=== PATIENT | female | born 1985 | race Caucasian/White ===

== ENCOUNTER 2016-11-14 19:45 | Inpatient (IN) | payer OTHER ==
[~2016-11-14] VITALS: Ht 177.8 cm; Wt 120.2 kg
[2016-11-14 20:15] VITALS: BP 132/90; PULSE 97
[2016-11-14 20:30] VITALS: RESP 18; TEMP 97.9
[2016-11-14] MEDS ORDERED: OXYTOCIN 30 UNITS-500ML PREMIX 500 ML IV ONE (20:30)
[2016-11-14] MEDS ORDERED: MINERAL OIL 10 ML VIAL TOPICAL PRN (20:30)
[2016-11-14] MEDS ORDERED: LIDOCAINE HCL 1% 50 ML VIAL I-DERMAL PRN (20:30)
[2016-11-14] MEDS ORDERED: SODIUM CHLORIDE 0.9% FLUSH 5 ML FLUSH IV FLUSH PRN (20:30)
[2016-11-14] MEDS ORDERED: LIDOCAINE HCL 1% 50 ML VIAL INFIL PRN (20:30)
[2016-11-14] MEDS ORDERED: CITRIC ACID-SODIUM CITRATE LIQ 30 ML UDC PO SCH (20:30)
[2016-11-14] MEDS ORDERED: DINOPROSTONE 10 MG VAG INSERT VAGINAL ONE (20:30)
--- NOTE | 2016-11-14 20:48 | HHI.HP ---
HPI Travel History International Travel<30 Days: No Contact w/Intl Traveler<30Days: No Known Affected Area: No History of Present Illness HPI 31-year-old g0 para 0030 with single intra-uterine at 39 weeks here for induction of labor secondary to suspected microsomia. Ultrasound three weeks ago noted 6 lbs. 14 oz. fetus.she had bpp in office 3 d ago with mike 8, bpp 8/8. + fm, irreg ctx, neg vb. History Past Medical History Narrative Medical mthfr deficiency homozygous Past Surgical History Narrative Surgical breast implants, DnC, abdominoplasty Family History Family History: Negative Social History Alcohol Use: No Tobacco Use: No Substance Abuse: No Allergies-Medications (Allergen,Severity, Reaction): Coded Allergies: No Known Allergies (Unverified , 11/14/16) Home Meds Reported Medications Aspirin 81 Mg Chew81 Mg CHEW DAILY Ref 0 11/15/16 Vit-Iron Carbonyl ( Plus Iron 29-1 mg)1 Tab Tab1 Tab PO DAILY #30 TAB Ref 0 11/15/16 Review of Systems General / Constitutional: No: Fever, Weight Gain, Chills, Other Eyes: No: Diploplia, Blurred Vision, Visual changes, Pain, Photophobia HENT: No: Headaches, Vertigo, Lightheadedness Cardiovascular: No: Irregular Rhythm, Chest Pain or Discomfort, Palpitations, Tachycardia, Syncope, Varicosities, Edema, Cyanosis Respiratory: No: Cough, Short of Breath, Other Gastrointestinal: No: Nausea, Vomiting, Diarrhea Genitourinary: No: Decreased Urinary Output, Oliguria Musculoskeletal: No: Limited ROM, Weakness, Cramping, Edema, Pain Skin: No Rash, No Itching, No Dryness, No Lumps, No Change in Pigmentation, No Change in Nails, No Alopecia, No Lesions Neurologic: No: Weakness, Dizziness, Syncope, Focal Abnormalities, Coordination Problem, Headache, Slurred Speech, Seizures Psychiatric: No: Depression, Suicidal Ideations, Homicidal Ideation Endocrine: No: Heat Intolerance, Cold Intolerance, Polydipsia, Polyuria, Other Physical Exam Narrative GENERAL: Well-nourished, well-developed patient. SKIN: Warm and dry. HEAD: Normocephalic and atraumatic. EYES: No scleral icterus. No injection or drainage. ENT: No nasal drainage noted. Mucous membranes pink. Airway patent. NECK: Supple, trachea midline. No JVD. CARDIOVASCULAR: Regular rate and rhythm without murmurs, gallops, or rubs. RESPIRATORY: Breath sounds equal bilaterally. No accessory muscle use. BREASTS: ABDOMEN/GI:abdominoplasty scar. Abdomen soft, non-tender, bowel sounds present, no rebound, no guarding Gravid to [-40weeks size GENITOURINARY: External Genitalia: intact and normal in appearance BUS glands: [-] Cervix: ft/th/hi cephalic, intact.bpp 8/8 in office 11/12/16 Presentation:v Membranes: [intact Uterine Contractions: [-] FHT's: Category: I EXTREMITIES: No cyanosis or edema. BACK: Nontender without obvious deformity. No CVA tenderness. NEUROLOGICAL: Awake and alert. Motor and sensory grossly within normal limits. Five out of 5 muscle strength in all muscle groups. Normal speech. Data Data Vital Signs Reviewed: Yes Orders Admit To Inpatient (11/14/16 ) Vital Signs (Adult) .Per protocol (11/14/16 20:20) Activity Oob Ad Mayra (11/14/16 20:20) ^ Heart (11/14/16 20:20) ^ Amnioinfusion (11/14/16 20:20) Urinary Catheter Management .ONCE (11/14/16 20:20) Diet Liquid (11/15/16 Breakfast) Lactated Ringer's 1000 Ml Inj (Lr 1000 M (11/14/16 20:20) Lactated Ringer's 1000 Ml Inj (Lr 1000 M (11/14/16 20:20) Sodium Chlorid 0.9% 500 Ml Inj (Ns 500 M (11/14/16 20:30) Sodium Chlor 0.9% 1000 Ml Inj (Ns 1000 M (11/14/16 20:40) Lidocaine 1% Inj (50 Ml) (Xylocaine 1% I (11/14/16 20:30) Citric Acid-Sodium Citrate Liq (Bicitra (11/14/16 20:30) Fentanyl Inj (Fentanyl Inj) (11/14/16 20:30) Fentanyl Inj (Fentanyl Inj) (11/14/16 20:30) Complete Blood Count With Diff (11/14/16 20:20) Hold Clot (11/14/16 20:20) Abo/Rh Blood Type (11/14/16 20:20) Urinalysis - C+S If Indicated (11/14/16 20:20) Resp Oxygen Non Rebreathe Mask (11/14/16 ) ^ Epidural / Intrathecal Infus (11/14/16 20:20) Oxytocin 30 Units-500ml Premix (Pitocin (11/14/16 20:30) Lidocaine 1% Inj (50 Ml) (Xylocaine 1% I (11/14/16 20:30) Light Mineral Oil (Muri-Lube Oil) (11/14/16 20:30) Admit To Inpatient (11/14/16 ) Activity Oob Ad Mayra (11/14/16 20:20) ^ Labor Induction (11/14/16 20:20) ^ Vaginal Insert (11/14/16 20:20) ^ Vaginal Lavage (11/14/16 20:20) ^ Heart (11/14/16 20:20) Sodium Chloride 0.9% Flush (Ns Flush) (11/14/16 21:00) Sodium Chloride 0.9% Flush (Ns Flush) (11/14/16 20:30) Dinoprostone Vag Insert (Cervidil Vag In (11/14/16 20:30) Inpatient Certification (11/14/16 ) Specimen To Be Collected PRN (11/14/16 20:20) Assessment/Plan Assessment and Plan 31-year-old with intrauterine at 39 weeks being admitted for induction of labor secondary to suspected macrosomia. 1- induction of labor will start with cervidil for 12 hours overnight. 2 suspected macrosomia-ultrasound at 36 weeks noted 6 lbs. 14 oz. 78 percentile 3 mthfr def homozygous w nl homocystein levels. 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
[2016-11-14] MEDS ORDERED: LACTATED RINGER'S 1000 ML INJ 1,000 ML IV PRN (21:00)
[2016-11-14] MEDS ORDERED: SODIUM CHLOR 0.9% 1000 ML INJ 1,000 ML IV PRN (21:00)
[2016-11-14] MEDS: SODIUM CHLORIDE 0.9% FLUSH 5 ML FLUSH IV FLUSH SCH (21:00)
[2016-11-14] MEDS ORDERED: SODIUM CHLORID 0.9% 500 ML INJ 500 ML IV PRN (21:00)
[2016-11-14 21:09] LABS: BACTERIA, URINE OCC /hpf; BLOOD, URINE NEG (NEG); COMMENT (UR) CULT NOT INDICATED; CULTURE IF INDICATED CULT NOT INDICATED; GLUCOSE,URINE NEG (NEG); KETONE, URINE NEG (NEG); MUCUS URINE FEW /lpf (OCC); NITRITE,URINE NEG (NEG); PH, URINE 6.5 (5.0-8.5); SQUAMOUS EPITHELIAL CELL URINE 1 /hpf (0-5); URINE COLOR YELLOW (YELLW/STRAW)
[2016-11-14] MEDS: LACTATED RINGER'S 1000 ML INJ 1,000 ML IV SCH (21:12)
[2016-11-14 21:17] LABS: AUTOMATED NEUTROPHIL # 8.2 TH/MM3 (1.8-7.7); BASOPHIL # 0.1 TH/MM3 (0-0.2); BASOPHIL % 0.5 % (0.0-2.0); EOSINOPHIL # 0.1 TH/MM3 (0-0.4); EOSINOPHIL % 0.9 % (0.0-4.0); HEMO FLAGS DIFF FINAL; LYMPH % 20.1 % (9.0-44.0); LYMPHOCYTE # 2.3 TH/MM3 (1.0-4.8); MEAN CORPUSCULAR HGB CONC 33.7 % (32.0-36.0); MONO % 7.8 % (0.0-8.0); NEUT % 70.7 % (16.0-70.0); PLATELET COUNT 309 TH/MM3 (150-450); RED BLOOD COUNT 4.13 MIL/MM3 (4.00-5.30); RED CELL DISTRIBUTION WIDTH 13.3 % (11.6-17.2); WHITE BLOOD COUNT 11.6 TH/MM3 (4.0-11.0)
[2016-11-14] MEDS ORDERED: ZOLPIDEM TARTRATE 10 MG TAB PO PRN (21:45)
[2016-11-15] VITALS (38 sets, daily range): BP systolic 102–137; BP diastolic 64–101; PULSE 68–107; RESP 16–18; TEMP 97.6–98.7
[2016-11-15 02:08] LABS: MRSA PCR NEGATIVE (NEGATIVE); STAPH AUREUS PCR NEGATIVE (NEGATIVE)
[2016-11-15] MEDS: LACTATED RINGER'S 1000 ML INJ 1,000 ML IV SCH (04:30)
[2016-11-15] MEDS ORDERED: ASPI81CH CHEW (06:06)
[2016-11-15] MEDS ORDERED: PREN29TA PO (06:06)
--- NOTE | 2016-11-15 08:33 | PD.LABORPN ---
Subjective Subjective Pt had cervidil overnight. had difficult time sleeping. has cramping Objective Vital Signs Vital Signs Date Time Temp Pulse Resp B/P Pulse Ox O2 Delivery O2 Flow Rate FiO2 11/15/16 07:14 97.6 16 11/15/16 07:12 75 109/64 11/15/16 02:15 98.4 18 11/15/16 02:06 97 119/83 11/15/16 00:30 18 Objective Pelvic Exam: Cervix: 11/23/2 anterior, soft Presentation v Membranes: [intact Uterine Contractions: irreg FHT's: Category:i [id number] Reactive: y Variability:mod Decels: [-] Assessment/Plan Problem List: (1) Labor and delivery, indication for care (2) MTHFR deficiency complicating (3) Obese Assessment and Plan 31 yo with iup at 39w1d here for iol for suspected macrosomia at term 1) IOL- s/p cervidil, Pit and arom when possible 2) Fetus Cat I tracing. cephalic. approx 8-8.5lb 3) MTHFR def homozygous- nl homocystein, on baby asprin throughout 4) obesity- normal 1 hr gct. has h/o abdominoplasty Sydney Quinn MD Nov 15, 2016 08:32 Sydney Quinn MD Nov 15, 2016 08:32
[2016-11-15] MEDS ORDERED: OXYTOCIN 30 UNITS-500ML PREMIX 500 ML IV SCH (09:00)
[2016-11-15] MEDS: SODIUM CHLORIDE 0.9% FLUSH 5 ML FLUSH IV FLUSH SCH ×2 (09:00→21:00)
--- NOTE | 2016-11-15 12:25 | PD.LABORPN ---
Subjective Subjective not feeling contractions Objective Vital Signs Vital Signs Date Time Temp Pulse Resp B/P Pulse Ox O2 Delivery O2 Flow Rate FiO2 11/15/16 11:15 98.7 11/15/16 11:00 80 113/68 11/15/16 10:30 99 125/80 11/15/16 10:00 89 124/82 11/15/16 09:30 82 117/68 11/15/16 09:22 81 102/66 11/15/16 07:14 97.6 16 11/15/16 07:12 75 109/64 Objective Pelvic Exam: Cervix: 11/23/2 anterior, soft. unchanged. Presentation: v Membranes: [intact Uterine Contractions:3-5 FHT's: Category: I Assessment/Plan Problem List: (1) Labor and delivery, indication for care (2) MTHFR deficiency complicating (3) Obese Assessment and Plan 31 yo with iup at 39w1d here for iol for suspected macrosomia at term 1) IOL- s/p cervidil, Pit at 8, unable to arom. If unable to arom next visit, will place fb. 2) Fetus Cat I tracing. cephalic. approx 8-8.5lb 3) MTHFR def homozygous- nl homocystein, on baby asprin throughout 4) obesity- normal 1 hr gct. has h/o abdominoplasty Sydney Quinn MD Nov 15, 2016 12:25
--- NOTE | 2016-11-15 18:21 | PD.LABORPN ---
Subjective Subjective doing well Objective Vital Signs Vital Signs Date Time Temp Pulse Resp B/P Pulse Ox O2 Delivery O2 Flow Rate FiO2 11/15/16 18:00 81 123/88 11/15/16 17:30 86 120/85 11/15/16 17:00 87 120/86 11/15/16 16:30 85 132/84 11/15/16 16:00 87 123/89 11/15/16 15:30 82 107/77 11/15/16 15:16 98.1 11/15/16 15:15 98.1 18 11/15/16 15:00 88 132/81 11/15/16 14:30 90 127/92 11/15/16 14:00 85 137/101 11/15/16 13:30 92 120/73 11/15/16 12:30 105 129/100 11/15/16 11:15 98.7 11/15/16 11:00 80 113/68 11/15/16 10:30 99 125/80 Objective Pelvic Exam: 2-3/25/-2 ant to mid Presentation: V Membranes: AROM Uterine Contractions: 3-5 min FHT's: Category:I Assessment/Plan Problem List: (1) Labor and delivery, indication for care (2) MTHFR deficiency complicating (3) Obese Assessment and Plan 31 yo with iup at 39w1d here for iol for suspected macrosomia at term 1) IOL- s/p cervidil, Pit at 18, AROM clear, iupc placed 2) Fetus Cat I tracing. cephalic. approx 8-8.5lb 3) MTHFR def homozygous- nl homocysteine, on baby aspirin throughout 4) obesity- normal 1 hr gct. has h/o abdominoplasty Sydney Quinn MD Nov 15, 2016 18:21
[2016-11-15] MEDS ORDERED: fentaNYL 2MCG-BUPIV 0.125% INJ 100 ML ONE (19:43)
[2016-11-15] MEDS ORDERED: FLUCONAZOLE 100 MG TAB PO ONE (20:00)
[2016-11-15] MEDS ORDERED: ONDANSETRON ODT 4 MG TAB PO PRN (22:00)
[2016-11-16] VITALS (45 sets, daily range): BP systolic 88–145; BP diastolic 62–104; PULSE 62–110; RESP 16–18; TEMP 97.6–98.3; O2SAT 95–96
[2016-11-16] MEDS ORDERED: fentaNYL 2MCG-BUPIV 0.125% INJ 100 ML ONE ×2 (02:05→08:32)
[2016-11-16] MEDS ORDERED: LACTATED RINGER'S 1000 ML INJ 1,000 ML IV ONE (12:00)
[2016-11-16] MEDS ORDERED: LACTATED RINGER'S 1000 ML INJ 1,000 ML IV SCH (12:30)
[2016-11-16] MEDS ORDERED: MORPHINE SULFATE PF 5 MG/10 ML VIAL ONE (12:32)
[2016-11-16] MEDS ORDERED: OXYTOCIN 10 UNIT/ML AMP ONE (12:32)
[2016-11-16] MEDS ORDERED: ONDANSETRON HCL 4 MG/2 ML VIAL ONE (12:32)
[2016-11-16] MEDS ORDERED: ePHEDrine/NS 50 MG/5 ML SYR ONE (12:32)
[2016-11-16 13:11] LABS: BLOOD GAS BASE EXCESS -3.1 mmol/L (-2-2); BLOOD GAS O2 HGB SATURATION 16 % (90-100); CORD BLOOD GAS HCO3 23 mmol/L (21-29); CORD BLOOD GAS PCO2 53 mmHG (34-78); CORD BLOOD GAS PH 7.26 (7.14-7.42); CORD BLOOD GAS PO2 13 mmHG (3.0-40.0); DRAW SITE CORD BLOOD; STAT NO
[2016-11-16] MEDS ORDERED: CITRIC ACID-SODIUM CITRATE LIQ 30 ML UDC PO SCH (13:15)
[2016-11-16] MEDS ORDERED: SODIUM CHLORIDE 0.9% FLUSH 5 ML FLUSH IV PRN (13:45)
[2016-11-16] MEDS ORDERED: SIMETHICONE 80 MG CHEWABLE TAB PO PRN (13:45)
[2016-11-16] MEDS ORDERED: ZOLPIDEM TARTRATE 5 MG TAB PO PRN (13:45)
[2016-11-16] MEDS ORDERED: ONDANSETRON HCL 4 MG/2 ML VIAL IV PUSH PRN (13:45)
[2016-11-16] MEDS: SODIUM CHLORIDE 0.9% FLUSH 5 ML FLUSH IV SCH ×2 (13:45→21:00)
[2016-11-16] MEDS ORDERED: ACETAMINOPHEN 325 MG TAB PO PRN (13:45)
[2016-11-16] MEDS ORDERED: OXYTOCIN 30 UNITS-500ML PREMIX 500 ML IV ONE (13:45)
[2016-11-16] MEDS ORDERED: ACETAMINOPHEN 1000 MG/100 ML VIAL IV ONE ×2 (13:45→14:25)
[2016-11-16] MEDS ORDERED: KETOROLAC TROMETHAMINE 60 MG/2 ML (IM) VIAL IM PRN (13:45)
--- NOTE | 2016-11-16 13:52 | PD.OB.DELI ---
Procedure Note Section Procedure Pre Op Diagnosis: (1) Obese (2) MTHFR deficiency complicating (3) Arrested labor Post Op Diagnosis: (1) Arrested labor (2) MTHFR deficiency complicating (3) Obese Performed by Sydney Quinn Procedure: Primary Low Transverse Sec Indication for delivery: malposition (OT presentation) Informed consent obtained: For anesthesia, For procedure Confirmed correct: Patient, Procedure, Site, Time-out taken Anesthesia: Epidural Medication prior to procedure: As documented in eMAR Monitoring during procedure: Blood pressure monitoring, Pulse oximetry Urinary catheter: Inserted using sterile technique, To dependent drainage, ml urine output (100) Sterile preparation: With 2% chlorexidine (Hibiclens) Position: Supine with wedge to right side, Supine with safety belt applied Operative Features Skin Incision: Pfannenstiel Uterine Incision: Low transverse w/knife / blunt ext Membranes Ruptured: Previously, Appearance of fluid (clear) Presentation: Other (OT) Delivery of infant: Uneventful Infant: Female One Minute : 9 Five Minute : 9 Weight: 4105g Status of : Viable Placenta delivered: Intact Medications: Antibiotics, Oxytocin Estimated blood loss: 600ml Procedure tolerated: Well Maternal Condition: Stable Condition: Stable Procedure in detail see dictation Sydney Quinn MD Nov 16, 2016 13:51
[2016-11-16] MEDS ORDERED: EPIDURAL-NALOXONE HCL 0.4 MG/ML AMP IV PRN (16:00)
[2016-11-16] MEDS ORDERED: EPIDURAL-NO SYSTEMIC NARCOTICS XX PRN (16:00)
[2016-11-16] MEDS ORDERED: EPIDURAL-DIPHENHYDRAMINE HCL 50 MG/ML VIAL IV PUSH PRN (16:00)
[2016-11-16] MEDS ORDERED: EPIDURAL-DO NOT ADMINISTER ANTICOAGULANTS XX PRN (16:00)
[2016-11-16] MEDS ORDERED: ePHEDrine/NS 50 MG/5 ML SYR IV PRN (16:15)
[2016-11-16] MEDS ORDERED: NO SYSTEM NARCOTICS XX PRN (16:15)
[2016-11-16] MEDS ORDERED: fentaNYL 2MCG-BUPIV 0.125% INJ 100 ML EPIDURAL SCH (16:15)
[2016-11-16] MEDS ORDERED: DO NOT ADMINISTER ANTICOAGULANTS XX PRN (16:15)
[2016-11-16] MEDS: DOCUSATE SODIUM 50 MG/SENNA 8.6 MG TAB PO SCH (22:01)
[2016-11-16] MEDS: EPIDURAL-DIPHENHYDRAMINE HCL 50 MG CAP PO PRN (22:02)
[2016-11-16] MEDS: IBUPROFEN 600 MG TAB PO PRN (22:02)
[2016-11-16] MEDS: LACTATED RINGER'S 1000 ML INJ 1,000 ML IV SCH (22:02)
[2016-11-16] MEDS ORDERED: OXYTOCIN 30 UNITS-500ML PREMIX 500 ML IV PRN (23:45)
[2016-11-17] MEDS: LACTATED RINGER'S 1000 ML INJ 1,000 ML IV SCH (04:41)
[2016-11-17] MEDS: EPIDURAL-DIPHENHYDRAMINE HCL 50 MG CAP PO PRN (04:50)
[2016-11-17] MEDS: IBUPROFEN 600 MG TAB PO PRN ×3 (04:51→18:10)
[2016-11-17 06:27] LABS: AUTOMATED NEUTROPHIL # 12.2 TH/MM3 (1.8-7.7); BASOPHIL # 0.1 TH/MM3 (0-0.2); BASOPHIL % 0.4 % (0.0-2.0); EOSINOPHIL # 0.2 TH/MM3 (0-0.4); EOSINOPHIL % 1.2 % (0.0-4.0); HEMATOCRIT 36.7 % (35.0-46.0); HEMO FLAGS DIFF FINAL; LYMPH % 12.3 % (9.0-44.0); LYMPHOCYTE # 1.9 TH/MM3 (1.0-4.8); MEAN CELL VOLUME 92.9 FL (80.0-100.0); MEAN CORPUSCULAR HEMOGLOBIN 30.7 PG (27.0-34.0); MONO % 7.9 % (0.0-8.0); NEUT % 78.2 % (16.0-70.0); PLATELET COUNT 302 TH/MM3 (150-450); RED BLOOD COUNT 3.95 MIL/MM3 (4.00-5.30); RED CELL DISTRIBUTION WIDTH 13.1 % (11.6-17.2); WHITE BLOOD COUNT 15.6 TH/MM3 (4.0-11.0)
--- NOTE | 2016-11-17 07:54 | HHI.OB ---
Subjective Post Operative Day: 1 Remarks no complaints, voiding, ambulating, h/o MTHFR Objective Vitals/I&O Vital Signs Date Time Temp Pulse Resp B/P Pulse Ox O2 Delivery O2 Flow Rate FiO2 11/16/16 15:20 98.2 83 16 117/80 11/16/16 14:53 81 125/88 11/16/16 14:53 97.9 18 95 11/16/16 14:39 88 18 128/90 95 11/16/16 14:23 85 18 124/87 96 11/16/16 14:04 97.6 95 11/16/16 14:04 84 18 135/80 11/16/16 12:00 98.0 145/104 11/16/16 11:45 79 99/70 11/16/16 11:30 82 113/89 11/16/16 08:30 87 125/78 11/16/16 08:15 82 122/81 11/16/16 08:00 83 131/83 Result Diagram: 11/17/16 0537 Objective Remarks GENERAL: Well-nourished, well-developed patient. CARDIOVASCULAR: Regular rate and rhythm without murmurs, gallops, or rubs. RESPIRATORY: Breath sounds equal bilaterally. No accessory muscle use. ABDOMEN/GI: Abdomen soft, non-tender, bowel sounds present. Incision: dressing Clean, dry and intact. Fundus: Firm, non-tender at umbilicus. GENITOURINARY: Light to moderate bleeding. EXTREMITIES: No cyanosis or edema, non-tender, without signs of DVT. Medications and IVs Current Medications Medications (Trade) Dose Ordered Sig/Cecile Route Start Time Stop Time Status Last Admin (Lr 1000 ml Inj) 1,000 ml @ 100 mls/hr Q10H IV 11/16/16 18:41 11/17/16 14:40 11/16/16 22:02 (NS Flush) 2 ml BID IV 11/16/16 13:45 (NS Flush) 2 ml UNSCH PRN IV 11/16/16 13:45 (Mylicon Chew) 80 mg QID PRN PO 11/16/16 13:45 (Tylenol) 650 mg Q6H PRN PO 11/16/16 13:45 (Motrin) 600 mg Q6H PRN PO 11/16/16 13:45 11/17/16 04:51 (Toradol Inj) 30 mg Q6H PRN IM 11/16/16 13:45 11/17/16 13:44 (Percocet 5-325 Mg) 1 tab Q4H PRN PO 11/16/16 13:45 (Percocet 5-325 Mg) 2 tab Q4H PRN PO 11/16/16 13:45 (Hannah-Colace) 2 tab Q12HR PO 11/16/16 13:45 11/16/16 22:01 (Ambien) 5 mg HS PRN PO 11/16/16 13:45 (M-M-R Ii Inj) 0.5 ml ONCE ONCE SQ 11/17/16 16:00 11/17/16 16:01 (Boostrix Inj) 0.5 ml ONCE ONCE IM 11/17/16 16:00 11/17/16 16:01 (Zofran Inj) 4 mg Q6H PRN IV PUSH 11/16/16 13:45 Miscellaneous Information NO SYSTEMIC NARCOTICS TO BE GIVEN FO... UNSCH PRN XX 11/16/16 16:00 11/17/16 15:59 (Narcan Inj) 0.4 mg UNSCH PRN IV 11/16/16 16:00 11/17/16 15:59 (Benadryl Inj) 25 mg Q6H PRN IV PUSH 11/16/16 16:00 11/17/16 15:59 11/16/16 16:50 (Benadryl) 50 mg Q6H PRN PO 11/16/16 16:00 11/17/16 15:59 11/17/16 04:50 Miscellaneous Information ALL NURSING DEPARTMENTS UNSCH PRN XX 11/16/16 16:00 11/17/16 15:59 Miscellaneous Information No systemic narcotics to be given except... UNSCH PRN XX 11/16/16 16:15 11/17/16 16:14 Miscellaneous Information DO NOT ADMINISTER ANY ANTICOAGUL... UNSCH PRN XX 11/16/16 16:15 11/17/16 16:14 (fentaNYL 2MCG-BUPIV 0.125% INJ) 100 ml @ 0 mls/hr TITRATE EPIDURAL 11/16/16 16:15 (ePHEDrine/NS 50 MG/5 ML SYR) 10 mg UNSCH PRN IV 11/16/16 16:15 11/17/16 16:14 Assessment/Plan Problem List: (1) Labor and delivery, indication for care (2) MTHFR deficiency complicating (3) Obese Assessment and Plan 31-year-old s/p primary LSTC for suspected macrosomia-ultrasound at 36 weeks noted 6 lbs. 14 oz. 78 percentile 1. mthfr def homozygous w nl homocystein levels. H/o recurrent loss restart baby ASA, ambulate, post op care Discharge Planning routine Attending Attestation pt seen by Linda Sutherland MD Nov 17, 2016 07:54
[2016-11-17] MEDS: DOCUSATE SODIUM 50 MG/SENNA 8.6 MG TAB PO SCH ×2 (11:09→21:55)
[2016-11-17] MEDS: ASPIRIN 81 MG CHEW TAB CHEW SCH (11:35)
[2016-11-17] MEDS: oxyCODONE/ACETAMINOPHEN 5 MG/325 MG TAB PO PRN ×3 (14:14→21:56)
[2016-11-17 15:36] VITALS: BP 108/78; PULSE 88; RESP 18; TEMP 98.8
[2016-11-17] MEDS ORDERED: MEASLES, MUMPS, RUBELLA VACCINE 0.5 ML VIAL SQ ONE (16:00)
[2016-11-17] MEDS ORDERED: DIPHTH/TETANUS/ACEL PERTUSSIS (BOOSTER) 0.5 ML VIAL/PFS IM ONE (16:00)
[2016-11-17] MEDS: SODIUM CHLORIDE 0.9% FLUSH 5 ML FLUSH IV SCH (21:00)
[2016-11-18] MEDS: IBUPROFEN 600 MG TAB PO PRN ×4 (02:32→21:16)
[2016-11-18] MEDS: oxyCODONE/ACETAMINOPHEN 5 MG/325 MG TAB PO PRN ×4 (02:33→21:16)
[2016-11-18 07:50] VITALS: BP 118/82; PULSE 97; RESP 18; TEMP 97.3
--- NOTE | 2016-11-18 08:01 | HHI.OB ---
Subjective Post Operative Day: 2 Remarks doing well, ambulating Objective Vitals/I&O Vital Signs Date Time Temp Pulse Resp B/P Pulse Ox O2 Delivery O2 Flow Rate FiO2 11/17/16 15:36 98.8 88 18 108/78 Result Diagram: 11/17/16 0537 Objective Remarks GENERAL: Well-nourished, well-developed patient. CARDIOVASCULAR: Regular rate and rhythm without murmurs, gallops, or rubs. RESPIRATORY: Breath sounds equal bilaterally. No accessory muscle use. ABDOMEN/GI: Abdomen soft, non-tender, bowel sounds present. Incision: Clean, dry and intact. Fundus: Firm, non-tender at umbilicus. GENITOURINARY: Light to moderate bleeding. EXTREMITIES: No cyanosis or edema, non-tender, without signs of DVT. Medications and IVs Current Medications Medications (Trade) Dose Ordered Sig/Cecile Route Start Time Stop Time Status Last Admin (NS Flush) 2 ml BID IV 11/16/16 13:45 (NS Flush) 2 ml UNSCH PRN IV 11/16/16 13:45 (Mylicon Chew) 80 mg QID PRN PO 11/16/16 13:45 (Tylenol) 650 mg Q6H PRN PO 11/16/16 13:45 (Motrin) 600 mg Q6H PRN PO 11/16/16 13:45 11/18/16 02:32 (Percocet 5-325 Mg) 1 tab Q4H PRN PO 11/16/16 13:45 11/18/16 02:33 (Percocet 5-325 Mg) 2 tab Q4H PRN PO 11/16/16 13:45 11/17/16 21:56 (Hannah-Colace) 2 tab Q12HR PO 11/16/16 13:45 11/17/16 21:55 (Ambien) 5 mg HS PRN PO 11/16/16 13:45 Ondansetron HCl 4 mg 4 mg Q6H PRN IV PUSH 11/16/16 13:45 (fentaNYL 2MCG-BUPIV 0.125% INJ) 100 ml @ 0 mls/hr TITRATE EPIDURAL 11/16/16 16:15 (Aspirin Chew) 81 mg DAILY CHEW 11/17/16 09:00 11/17/16 11:35 Assessment/Plan Problem List: (1) Labor and delivery, indication for care (2) MTHFR deficiency complicating (3) Obese Assessment and Plan 31-year-old s/p primary LSTC for suspected macrosomia-ultrasound at 36 weeks noted 6 lbs. 14 oz. 78 percentile, POD #2 1. mthfr def homozygous w nl homocystein levels. H/o recurrent loss restart baby ASA, ambulate, post op care Discharge Planning routine Attending Attestation pt seen by Linda Sutherland MD Nov 18, 2016 08:01
[2016-11-18] MEDS: DOCUSATE SODIUM 50 MG/SENNA 8.6 MG TAB PO SCH ×2 (08:34→21:16)
[2016-11-18] MEDS: ASPIRIN 81 MG CHEW TAB CHEW SCH (08:34)
[2016-11-18] MEDS: SODIUM CHLORIDE 0.9% FLUSH 5 ML FLUSH IV SCH ×2 (09:00→21:00)
--- NOTE | 2016-11-18 18:34 | HHI.DCPOC ---
Discharge Care Plan Diagnosis: (1) S/P section Your Health Problems Are: delivery Report Symptoms to Your Doctor -Temperate above 100.5 degrees -Redness, of incision or excessive or foul smelling drainage -Unusual pain or calf pain -Increased vaginal bleeding -Painful or difficulty urinating -Feelings of extreme sadness or anxiety after 2 weeks Goals to Promote Your Health * To prevent worsening of your condition and complications * To maintain your health at the optimal level Directions to Meet Your Goals Take your medications as prescribed Follow your dietary instruction Follow activity as directed Ensure plenty of rest for recovery Drink fluids for hydration Keep your appointments as scheduled Take your immunizations and boosters as scheduled If your symptoms worsen call your PCP, if no PCP go to Urgent Care Center or Emergency Room Smoking is Dangerous to Your Health. Avoid second hand smoke Call the 24-hour crisis hotline for domestic abuse at Sydney Quinn MD Nov 18, 2016 18:34
[2016-11-18] MEDS ORDERED: SENN1TAB PO (18:36)
[2016-11-18] MEDS ORDERED: OXYC1TAB63 PO (18:36)
[2016-11-18] MEDS ORDERED: IBUP-232 PO (18:36)
[2016-11-18 19:20] VITALS: BP 127/92; PULSE 82; RESP 16; TEMP 97.9
[2016-11-19] MEDS: oxyCODONE/ACETAMINOPHEN 5 MG/325 MG TAB PO PRN ×3 (01:16→12:26)
--- NOTE | 2016-11-19 06:06 | HHI.OB ---
Subjective Post Operative Day: 3 Remarks Doing well except for BLE swelling, states right leg was very swollen yesterday , improved now. Objective Vitals/I&O Vital Signs Date Time Temp Pulse Resp B/P Pulse Ox O2 Delivery O2 Flow Rate FiO2 11/18/16 19:20 97.9 82 16 127/92 11/18/16 07:50 97.3 97 18 118/82 Result Diagram: 11/17/16 0537 Objective Remarks GENERAL: Well-nourished, well-developed patient. CARDIOVASCULAR: Regular rate and rhythm without murmurs, gallops, or rubs. RESPIRATORY: Breath sounds equal bilaterally. No accessory muscle use. ABDOMEN/GI: Abdomen soft, non-tender, bowel sounds present. Incision: Clean, dry and intact. Fundus: Firm, non-tender at umbilicus. GENITOURINARY: Light to moderate bleeding. EXTREMITIES: No cyanosis, 3+ ble edema, non-tender, without signs of DVT. Medications and IVs Current Medications Medications (Trade) Dose Ordered Sig/Cecile Route Start Time Stop Time Status Last Admin (NS Flush) 2 ml BID IV 11/16/16 13:45 (NS Flush) 2 ml UNSCH PRN IV 11/16/16 13:45 (Mylicon Chew) 80 mg QID PRN PO 11/16/16 13:45 (Tylenol) 650 mg Q6H PRN PO 11/16/16 13:45 (Motrin) 600 mg Q6H PRN PO 11/16/16 13:45 11/18/16 21:16 (Percocet 5-325 Mg) 1 tab Q4H PRN PO 11/16/16 13:45 11/19/16 01:16 (Percocet 5-325 Mg) 2 tab Q4H PRN PO 11/16/16 13:45 11/17/16 21:56 (Hannah-Colace) 2 tab Q12HR PO 11/16/16 13:45 11/18/16 21:16 (Ambien) 5 mg HS PRN PO 11/16/16 13:45 Ondansetron HCl 4 mg 4 mg Q6H PRN IV PUSH 11/16/16 13:45 (fentaNYL 2MCG-BUPIV 0.125% INJ) 100 ml @ 0 mls/hr TITRATE EPIDURAL 11/16/16 16:15 (Aspirin Chew) 81 mg DAILY CHEW 11/17/16 09:00 11/18/16 08:34 Assessment/Plan Problem List: (1) Labor and delivery, indication for care (2) MTHFR deficiency complicating (3) Obese Assessment and Plan 31-year-old s/p primary LSTC for arrest of descent, POD #3 mthfr def homozygous w nl homocystein levels, on ASA 81 mg. BLE edema, will get doppler to r/o dvt prior to d/c. encourage ambulation, routine post op care Discharge Planning routine, today if negative doppler Sydney Quinn MD Nov 19, 2016 06:06
[2016-11-19] MEDS: IBUPROFEN 600 MG TAB PO PRN ×2 (06:25→12:27)
[2016-11-19] MEDS: DOCUSATE SODIUM 50 MG/SENNA 8.6 MG TAB PO SCH (09:22)
[2016-11-19] MEDS: ASPIRIN 81 MG CHEW TAB CHEW SCH (09:22)
--- NOTE | 2016-11-19 11:23 | RADRPT ---
EXAM DATE/TIME: 11/19/2016 10:13 [facility] COMPARISON: No previous studies available for comparison. INDICATIONS : Bilateral leg swelling. MEDICAL HISTORY : . MTHFR deficiency syndrome. SURGICAL HISTORY : section. Breast augmentation. Abdominoplasty. Dilation and curettage. ENCOUNTER: Initial ACUITY: 1 day PAIN SCORE: 0/10 LOCATION: Bilateral legs. TECHNIQUE: Venous ultrasound of the left and right leg was performed from the inguinal ligament to the proximal calf. Real-time, color Doppler and spectral tracing, compression and augmentation techniques were us ed. FINDINGS: RIGHT LEG: There is normal compressibility of the deep venous system from the inguinal region to the proximal ca lf. No echogenic clot is seen in the lumen of the common femoral, femoral, popliteal, and posterior tibial veins. There is a normal response of the venous system to proximal and distal augmentation an d respiration. LEFT LEG: There is normal compressibility of the deep venous system from the inguinal region to the proximal ca lf. No echogenic clot is seen in the lumen of the common femoral, femoral, popliteal, and posterior tibial veins. There is a normal response of the venous system to proximal and distal augmentation an d respiration. CONCLUSION: No DVT is identified within either lower extremity. Satnam Caal MD on November 19, 2016 at 11:20 Board Certified Radiologist. This report was verified electronically.
--- NOTE | 2016-11-22 15:45 | MP ---
cc: SYDNEY QUINN MD DATE OF SURGERY 11/16/2016 PREOPERATIVE DIAGNOSES 1. Intrauterine at 39 weeks and 2 days. 2. Suspected macrosomia. 3. Methylenetetrahydrofolate reductase deficiency, homozygous with normal homocysteine levels. 4. Obesity. 5. History of abdominoplasty. 6. Arrest of descent. POSTOPERATIVE DIAGNOSES 1. Intrauterine at 39 weeks and 2 days. 2. Suspected macrosomia. 3. Methylenetetrahydrofolate reductase deficiency, homozygous with normal homocysteine levels. 4. Obesity. 5. History of abdominoplasty. 6. Arrest of descent. INDICATIONS The patient is a 31-year-old G4, P 0-0-3-0 who was admitted at 39 weeks for induction of labor for suspected macrosomia. She started her induction with Cervidil, followed by Pitocin. After a 36-hour induction, she dilated to complete/complete, +1 station but had arrest. position was noted to be OT. Discussion was held with the patient that, despite pushing efforts she had no further descent. Discussed with the patient need for delivery. The patient and partner are in agreement. Consents were previously signed on chart. PROCEDURE PERFORMED Primary low transverse delivery. SURGEON Sydney Youngblood MD DRY CHARGE PROCESS ATTENDANT Lizbeth Smith MD ESTIMATED BLOOD LOSS 600 mL. URINE OUTPUT 100 mL of urine at the end of the case, blood tinged prior to procedure. IV FLUIDS 1200 mL. ANTIBIOTICS Ancef 2 grams IV pre-incision. DVT PROPHYLAXIS Bilateral lower extremity SCDs. INTRAOPERATIVE FINDINGS Viable female infant. Apgars of 9 and 9, weight 4105 grams. OT presentation. Minimal caput. MATERNAL FINDINGS Normal uterus, tubes and ovaries. COMPLICATIONS None. COUNTS Sponge, lap, needle, instrument counts correct x 3. PROCEDURE IN DETAIL After reviewing informed consent, the patient was taken to the operating room where epidural was confirmed to be adequate. The Mckinley had previously been inserted in sterile technique. The abdomen was prepped and draped in normal sterile fashion. A Pfannenstiel skin incision was made with the scalpel, carried down to underlying layer of fascia with the Bovie. The fascia was incised across the midline with the Bovie, extended sharply. The rectus muscles were dissected from the fascia after elevation with Kochers. The rectus muscles were in the midline bluntly. The peritoneum was entered bluntly. A bladder blade was placed. A bladder flap was made with Metzenbaum scissors. The bladder blade was replaced. A low transverse uterine incision was made with a scalpel and this was extended bluntly. The head was very low in the pelvis. The head was flexed and slowly brought to the level of the hysterotomy. This was difficult as there was the suction created in the maternal pelvis. After delivery of the head, gentle fundal pressure was used to deliver the rest of the body. The infant was bulb suctioned, the cord was doubly clamped and cut. was handed off to awaiting nursery team. A segment of cord was clamped and cut for cord gases. Cord blood was collected. The placenta was delivered using cord traction and gentle uterine massage. Pitocin was started immediately after delivery of the infant. The uterus was then exteriorized, cleared of all clots and debris with a moistened laparotomy sponge. The uterus was repaired in two layers with #1 chromic in a running fashion, followed by an imbricating layer. The posterior cul-de-sac was irrigated. The uterus was returned to the abdomen. Good tone was noted. Good hemostasis was noted. Anterior cul-de-sac was irrigated and suctioned. The peritoneum was closed with #2 chromic in a running fashion. The fascia was then approximated with #1 Vicryl in a running fashion. The subcutaneous tissue was irrigated and suctioned. Hemostasis was assured. This layer was closed with 2-0 chromic in three layers given the depth of this layer. The skin was closed with 3-0 Monocryl. A pressure dressing was placed. The patient tolerated the procedure well. She is an acceptable candidate for trial of labor after delivery. Sydney Quinn MD PE/ROLAND /2:20 PM /3:00 PM [facility]
== END 2016-11-19 14:24 | disposition home or self-care (01) | DRG 765 ==
LOC: H2EA 19:45 → H1EA 11-16 15:35
PROVIDERS: ADMIT Obstetrics & Gynecology; ATTEND Obstetrics & Gynecology
PROC: 00HU33Z Insertion of Infusion Device into Spinal Canal, Percutaneous Approach (ICD-10-PCS; 2016-11-15)
PROC: 3E0R3CZ (ICD-10-PCS; 2016-11-15)
PROC: 10D00Z1 Extraction of Products of Conception, Low, Open Approach (ICD-10-PCS; principal; 2016-11-16)
DX: O99.284 Endocrine, nutritional and metabolic diseases complicating childbirth (principal); E72.12 Methylenetetrahydrofolate reductase deficiency; Z3A.39 39 weeks gestation of pregnancy; O62.1 Secondary uterine inertia; O99.214 Obesity complicating childbirth; E66.9 Obesity, unspecified; O32.8XX0 Maternal care for other malpresentation of fetus, not applicable or unspecified; Z98.82 Breast implant status; Z37.0 Single live birth
CPT/HCPCS: 59025; 81001; 82805; 85025; 86900; 86901; 87640; 87641; 93970; J0131; J0690; J1200; J2274; J2405; J2590; J7120; Q0163

== ENCOUNTER 2016-11-25 21:04 | Emergency (ER) | payer OTHER ==
[~2016-11-25] VITALS: Ht 177.8 cm; Wt 115.0 kg
[~2016-11-25 21:04] MED LIST: ASPI81CH CHEW; IBUP-232 PO; OXYC1TAB63 PO; PREN29TA PO; SENN1TAB PO
[2016-11-25 21:06] VITALS: BP 168/98; PULSE 68; RESP 16; TEMP 97.3; O2SAT 99
[2016-11-25] MEDS ORDERED: BACT400T PO (21:22)
[2016-11-25 22:24] LABS: AUTOMATED NEUTROPHIL # 5.9 TH/MM3 (1.8-7.7); BASOPHIL # 0.1 TH/MM3 (0-0.2); BASOPHIL % 0.6 % (0.0-2.0); EOSINOPHIL # 0.3 TH/MM3 (0-0.4); EOSINOPHIL % 3.6 % (0.0-4.0); HEMATOCRIT 37.1 % (35.0-46.0); HEMO FLAGS DIFF FINAL; LYMPH % 24.5 % (9.0-44.0); LYMPHOCYTE # 2.3 TH/MM3 (1.0-4.8); MEAN CELL VOLUME 92.3 FL (80.0-100.0); MEAN CORPUSCULAR HEMOGLOBIN 31.2 PG (27.0-34.0); MEAN CORPUSCULAR HGB CONC 33.8 % (32.0-36.0); MONO % 8.7 % (0.0-8.0); NEUT % 62.6 % (16.0-70.0); PLATELET COUNT 484 TH/MM3 (150-450); RED BLOOD COUNT 4.02 MIL/MM3 (4.00-5.30); RED CELL DISTRIBUTION WIDTH 13.1 % (11.6-17.2); WHITE BLOOD COUNT 9.5 TH/MM3 (4.0-11.0)
--- NOTE | 2016-11-25 22:36 | PD ---
HPI Chief Complaint: Bleeding Time Seen by Provider: 21:18 Travel History International Travel<30 days: No Contact w/Intl Traveler<30days: No Traveled to known affect area: No History of Present Illness HPI 31-year-old woman, status post on November [address] Quinn, presents with bleeding from the incision site. She been doing generally well. She had the for failure of descent after induction for concern for macrosomia. 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 She's done well until she saw Dr. Tay the office today. Examination there is some concern for infection at the wound. Culture was obtained. When she got home today she noticed some blood, and then started having ongoing bleeding from the wound. Some pain in the area. She otherwise is doing well. No fevers or chills. No other complaints. Baby is doing well. History Past Medical History Medical History: Denies Significant Hx Tetanus Vaccination: Unknown Influenza Vaccination: Yes Social History Alcohol Use: No Tobacco Use: No Allergies-Medications (Allergen,Severity, Reaction): Coded Allergies: No Known Allergies (Unverified , 11/25/16) Reported Meds & Prescriptions Reported Meds & Active Scripts Active Reported Bactrim (Sulfamethoxazole-Trimethoprim) 400-80 Mg Tab 1 Tab PO BID Aspirin 81 Mg Chew 81 Mg CHEW DAILY Review of Systems Except as stated in HPI: all other systems reviewed are Neg Physical Exam Narrative GENERAL: Well-appearing 31-year-old woman, no acute distress. SKIN: Warm and dry. NECK: Trachea midline. No JVD. CARDIOVASCULAR: Regular rate and rhythm. No murmur appreciated. RESPIRATORY: No accessory muscle use. Clear to auscultation. Breath sounds equal bilaterally. GASTROINTESTINAL: Abdomen is soft. There is no significant tenderness. Incision in the lower abdomen appears to be well approximated. There is 2 areas on the right side with trickling ongoing bleeding. Bleeding picks up with pressure on the side of the suture could suggest an underlying fluid collection. There is a little bit of induration surrounding the entire area of the incision with some warmth and tenderness. There is no obvious significant erythema. There is no purulent drainage. Data Data Last Documented VS Vital Signs Date Time Temp Pulse Resp B/P Pulse Ox O2 Delivery O2 Flow Rate FiO2 11/25/16 21:06 97.3 68 16 168/98 99 Room Air Orders Complete Blood Count With Diff (11/25/16 21:48) Labs Laboratory Tests Test 11/25/16 22:06 White Blood Count 9.5 TH/MM3 Red Blood Count 4.02 MIL/MM3 Hemoglobin 12.6 GM/DL Hematocrit 37.1 % Mean Corpuscular Volume 92.3 FL Mean Corpuscular Hemoglobin 31.2 PG Mean Corpuscular Hemoglobin 33.8 % Concent Red Cell Distribution Width 13.1 % Platelet Count 484 TH/MM3 Mean Platelet Volume 7.1 FL Neutrophils (%) (Auto) 62.6 % Lymphocytes (%) (Auto) 24.5 % Monocytes (%) (Auto) 8.7 % Eosinophils (%) (Auto) 3.6 % Basophils (%) (Auto) 0.6 % Neutrophils # (Auto) 5.9 TH/MM3 Lymphocytes # (Auto) 2.3 TH/MM3 Monocytes # (Auto) 0.8 TH/MM3 Eosinophils # (Auto) 0.3 TH/MM3 Basophils # (Auto) 0.1 TH/MM3 CBC Comment DIFF FINAL Differential Comment MDM Medical Decision Making Medical Screen Exam Complete: Yes Emergency Medical Condition: Yes Interpretation(s) CBC is unremarkable Differential Diagnosis Wound dehiscence, seroma, infection, other Narrative Course Medical decision making Is a 30 year-old woman presents to the emergency department with weaning from her incision. There are some small fluid collection below the wound. Straining a fair amount of fluid. There is a little bit of inflammation redness around the wound. She just started Bactrim this morning. She otherwise feels well. CBC is unremarkable. We'll discuss with her OB doctor, likely continue Bactrim, bandage to the wound, warm compresses. FINAL: Spoke with Dr. Yi mathis. Incision was opened some with Q-tip. Packing was placed. Patient was sent home with ABD pads, and instruction to return for any worsening pain lightheadedness dehiscence or fevers or chills. She'll remove the packing in 2 days. She'll follow-up with OB doctor on Monday. Diagnosis Primary Impression: Seroma Additional Impression: Infection of section or perineal wound Additional Instructions: Follow-up with your OB doctor on Monday. Continue Bactrim. Continue warm compresses and occurred drainage from the wound. Return to the emergency department for any fevers or chills, worsening pain, worsening redness, wound dehiscence, or any other new or worsening symptoms. Med/Other Pt SpecificInfo: No Change to Meds Disposition: 01 DISCHARGE HOME Condition: Stable Sukh Faustin MD Nov 25, 2016 22:36
== END 2016-11-25 23:19 | disposition home or self-care (01) ==
LOC: NEPE 21:04
DX: O86.0 Infection of obstetric surgical wound (principal); O90.2 Hematoma of obstetric wound
CPT/HCPCS: 85025; 99283